=== PATIENT | male | born 1955 | race Caucasian/White ===

== ENCOUNTER 2019-12-30 09:21 | Outpatient (CLI) | payer OTHER, SELFPAY ==
[2019-12-30 10:01] LABS: Basophils Absolute Auto 0.1 K/mm3 (0.0-0.1); Basophils Percent Auto 0.7 % (0.2-1.2); Eosinophils Absolute Auto 0.1 K/mm3 (0-0.3); Eosinophils Percent Auto 1.4 % (0-4.4); Hematocrit 42.2 % (42.0-52.0); Hemoglobin 14.4 g/dL (14.0-18.0); Immature Granulocyte Absolute 0.03 K/mm3 (0.00-0.031); Immature Granulocyte Percent A 0.4 % (0-0.5); Lymphocytes Absolute Auto 1.91 K/mm3 (0.9-3.2); Lymphocytes Percent Auto 27.6 % (18.3-44.2); Mean Corpuscular HGB Conc 34.1 g/dl (32-36); Mean Corpuscular Hemoglobin 30.5 pg (26-34); Mean Corpuscular Volume 89.4 fl (80-100); Monocytes Absolute Auto 0.6 K/mm3 (0.1-0.6); Monocytes Percent Auto 8.5 % (2.6-8.5); Neutrophils Absolute Auto 4.2 K/mm3 (1.3-6.7); Neutrophils Percent Auto 61.4 % (45.5-73.1); Platelet Count Result 161 k/mm3 (150-375); Red Blood Count 4.72 M/mm3 (4.6-6.20); Red Cell Distribution Width 11.9 % (11.5-14.5); White Blood Count 6.9 K/mm3 (4.5-10.0)
[2019-12-30 10:12] LABS: Alanine Aminotransferase 18 U/L (4-50); Albumin Level 4.2 g/dL (3.5-5.1); Alkaline Phosphatase 77 U/L (38-126); Aspartate Amino Transferase 23 U/L (17-59); Bilirubin,Total 0.5 mg/dL (0.2-1.3); Blood Urea Nitrogen 14 mg/dL (9-20); Calcium 8.8 mg/dL (8.4-10.2); Carbon Dioxide 27 mmol/L (22-30); Chloride 102 mmol/L (98-107); Estimated Glomerular Filt Rate > 60; Glucose 107 mg/dL (75-110); Potassium 4.1 mmol/L (3.4-5.0); Sodium 139 mmol/L (137-145)
== END 2019-12-30 09:22 | disposition home or self-care (01) ==
PROVIDERS: PCP Family Medicine; Visit Provider Internal Medicine Medical Oncology
DX: E80.1 Porphyria cutanea tarda (principal)
CPT/HCPCS: 36415; 80053; 82728; 85025

== ENCOUNTER 2020-12-17 14:20 | Emergency (ER) | payer OTHER, SELFPAY ==
--- NOTE | ~2020-12-17 | XR_ITS ---
EXAMINATION: XR ankle RT min 3V DATE: 12/17/2020 14:56 INDICATION: Right ankle pain. TECHNIQUE: 4 views of right ankle were obtained. COMPARISON: None. FINDINGS: Bone alignment is normal. No fracture. There is mild osteoarthritis of talonavicular joint. There is a small osteochondral lesion of medial talar dome. IMPRESSION: 1. Polyarticular osteoarthritis. Reviewed, dictated and finalized at location A. CTOR PERIOPERATIVE
--- NOTE | 2020-12-17 14:42 | ED.LOWEXIN ---
HPI - Extremity Injury (Lower) General Chief Complaint: Extremity Injury, Lower Stated Complaint: Right ankle Pain Time Seen by Provider: 12/17/20 14:42 Source: patient and RN notes reviewed Mode of arrival: ambulatory Limitations: no limitations History of Present Illness HPI Narrative: 65-year-old male presents to [facility] with complaints of right ankle pain for the last 6-8 weeks. No treatment travel pta. Patient has not seen a provider for this issue. Has a HX of an ankle fracture but unsure of the ankle involved. Has not seen anyone for this issues. States that the pain is worse at night. No swelling or discoloration. Related Data Allergies Allergy/AdvReac Type Severity Reaction Status Date / Time No Known Allergies Allergy Verified 07/22/14 13:19 Review of Systems Review of Systems: Narrative: CONSTITUTIONAL: Denies fever, chills, or sweats. CARDIOVASCULAR: Denies chest pain, palpitations, or edema. RESPIRATORY: Denies cough or dyspnea. GASTROINTESTINAL: Denies abdominal pain, nausea, vomiting, or diarrhea. GENITOURINARY: Denies dysuria or hematuria. SKIN: Denies rash or itching. MUSCULOSKELETAL: Denies back pain or myalgia. Reports right ankle pain, generalized. NEUROLOGIC: Denies headache, numbness, or weakness. PSYCHIATRIC: Denies anxiety or depression. All other systems reviewed are negative, except as documented in HPI. [facility] Past Medical History Medical History (Updated 12/18/20 @ 00:00 by Background Daemon) Exposure to COVID-19 virus Social History Social History Smoking status: Never smoker Alcohol intake: current Comments At the time of my signature, I reviewed and agree with the nursing past medical, surgical, social, and family history. There is no relevant family history pertinent to the patient complaint. Exam Narrative: Exam Narrative: GENERAL: This is a well-nourished, well-developed patient, in no apparent distress. HEAD: normocephalic, atraumatic. NECK: Neck supple, non-tender without lymphadenopathy. CARDIOVASCULAR: Regular rate and rhythm without murmurs, gallops, or rubs. RESPIRATORY: Clear to auscultation. Breath sounds equal bilaterally. No wheezes, rales, or rhonchi. GASTROINTESTINAL: Abdomen soft, non-tender, nondistended. SKIN: warm, intact with no suspicious lesions or rash, good texture and turgor. NEURO: awake, alert, and oriented to person, place and time. There were no obvious focal neurologic abnormalities. EXTREMITIES: No clubbing, cyanosis, or edema. No joint tenderness, effusion, or edema noted. No calf tenderness. Negative Homans sign bilaterally. Able to dorsiflex and flex without issue. Achilles intact. No redness, edema or discoloration. Capillary refill under 2 seconds BACK: Nontender without deformity or crepitance. No flank tenderness. Course Vital Signs Vital signs: Vital Signs Temperature 97.0 F L 12/17/20 15:04 Pulse Rate 77 12/17/20 15:04 Respiratory Rate 16 12/17/20 15:04 Blood Pressure 139/77 12/17/20 15:04 Pulse Oximetry 100 12/17/20 15:04 Temperature 97.0 F L 12/17/20 15:04 Pulse Rate 77 12/17/20 15:04 Respiratory Rate 16 12/17/20 15:04 Blood Pressure 139/77 12/17/20 15:04 Pulse Oximetry 100 12/17/20 15:04 Reviewed within defined limits MDM - Extremity Injury (Lower) Imaging Data Radiologist's impression: Impressions Ankle X-Ray 12/17/20 15:00 IMPRESSION: 1. Polyarticular osteoarthritis. Critical Care Time Critical Care Time Critical Care Time: No Discharge Plan Discharge Clinical Impression: Arthritis of ankle, right Patient Disposition: Home, Self-Care Condition: Stable Instructions: Antibiotic Form, Arthritis (ED) Additional Instructions: Use ice or heat to your ankle 3-4 times a day whichever feels better. Take ibuprofen as needed for pain Range of motion exercises are important. Follow-up with your primary care provider if you are not seeing improvement in 1
[2020-12-17 15:04] VITALS: BP 139/77; PULSE 77; RESP 16; TEMP 36.1; O2SAT 100
== END 2020-12-17 15:19 | disposition home or self-care (01) ==
PROVIDERS: Emergency Provider Nurse Practitioner; PCP Family Medicine
DX: M19.071 Primary osteoarthritis, right ankle and foot (principal)
CPT/HCPCS: 73610; 99213; G0463

== ENCOUNTER 2020-12-30 15:21 | Outpatient (CLI) | payer OTHER, SELFPAY ==
[2020-12-30 16:15] LABS: Basophils Absolute Auto 0.1 K/mm3 (0.0-0.1); Basophils Percent Auto 0.6 % (0.2-1.2); Eosinophils Absolute Auto 0.1 K/mm3 (0-0.3); Eosinophils Percent Auto 0.8 % (0-4.4); Hematocrit 41.1 % (42.0-52.0); Hemoglobin 14.2 g/dL (14.0-18.0); Immature Granulocyte Absolute 0.02 K/mm3 (0.00-0.031); Immature Granulocyte Percent A 0.3 % (0-0.5); Lymphocytes Absolute Auto 2.24 K/mm3 (0.9-3.2); Lymphocytes Percent Auto 28.8 % (18.3-44.2); Mean Corpuscular HGB Conc 34.5 g/dl (32-36); Mean Corpuscular Hemoglobin 30.7 pg (26-34); Mean Platelet Volume 11.1 fl (7.4-10.4); Monocytes Absolute Auto 0.5 K/mm3 (0.1-0.6); Monocytes Percent Auto 6.8 % (2.6-8.5); Neutrophils Absolute Auto 4.9 K/mm3 (1.3-6.7); Neutrophils Percent Auto 62.7 % (45.5-73.1); Platelet Count Result 184 k/mm3 (150-375); Red Blood Count 4.62 M/mm3 (4.6-6.20); Red Cell Distribution Width 11.9 % (11.5-14.5); White Blood Count 7.8 K/mm3 (4.5-10.0)
[2020-12-30 16:34] LABS: Alanine Aminotransferase 21 U/L (4-50); Albumin Level 4.2 g/dL (3.5-5.1); Alkaline Phosphatase 65 U/L (38-126); Anion Gap 5 mmol/L (8-16); Aspartate Amino Transferase 27 U/L (17-59); Bilirubin,Total 0.5 mg/dL (0.2-1.3); Blood Urea Nitrogen 19 mg/dL (9-20); Calcium 9.2 mg/dL (8.4-10.2); Carbon Dioxide 29 mmol/L (22-30); Chloride 103 mmol/L (98-107); Estimated Glomerular Filt Rate > 60; Glucose 140 mg/dL (75-110); Potassium 3.9 mmol/L (3.4-5.0); Sodium 137 mmol/L (137-145)
== END 2020-12-30 15:22 | disposition home or self-care (01) ==
LOC: ANHLAB 15:24
PROVIDERS: PCP Family Medicine
DX: E80.20 Unspecified porphyria (principal)
CPT/HCPCS: 36415; 80053; 82728; 85025

== ENCOUNTER → 2021-08-31 08:41 | Outpatient (CLI) | payer BC, SELFPAY ==
[2021-08-31 19:23] LABS: SARS-CoV-2 RNA PCR Negative
== END ==
PROVIDERS: PCP Family Medicine; Visit Provider Family Medicine
DX: R68.89 Other general symptoms and signs (principal); Z20.822 Contact with and (suspected) exposure to COVID-19
CPT/HCPCS: C9803; U0003; U0005

== ENCOUNTER 2021-11-01 09:50 | Observation (INO) | payer BC, SELFPAY ==
[2021-11-01] VITALS (10 sets, daily range): BP systolic 100–127; BP diastolic 71–83; PULSE 64–78; RESP 16–22; TEMP 36.8–37.2; O2SAT 98–100; BMI 28.7
--- NOTE | ~2021-11-01 | XR_ITS ---
EXAMINATION: XR chest 1V portable DATE: 11/01/2021 11:15 INDICATION: COVID presenting with cough, fever, hypoxia and syncope TECHNIQUE: frontal view of the chest was obtained. COMPARISON: None FINDINGS: The lungs are clear with no focal airspace opacities, pulmonary edema, pleural effusion or pneumothor ax. The cardiomediastinal silhouette is normal. Visualized bones and soft tissues are unremarkable. IMPRESSION: 1. No evident acute cardiopulmonary disease. Reviewed, dictated and finalized at location A. ENT SERVICES COUNSELOR
--- NOTE | ~2021-11-01 | CT_ITS ---
EXAMINATION: CT brain wo con DATE: 11/01/2021 11:32 INDICATION: Confusion and dizziness post syncopal episode earlier this morning. COVID positive. TECHNIQUE: Computed tomography (CT) of the head was performed without intravenous contrast. Sagittal and coronal reconstructions were performed. The mA was adjusted according to patient size. Iterative reconstruction technique was employed. The dose-length product was 681.00 mGy-cm. COMPARISON: None FINDINGS: No acute intracranial hemorrhage, acute infarction or abnormal extra axial fluid collection. There is mild scattered white matter hypoattenuation consistent with chronic small vessel ischemic disease. Ventricles are normal and symmetric. No mass/mass effect. Mild mucoperiosteal thickening throughout t he paranasal sinuses. The orbits and mastoid air cells are normal. IMPRESSION: 1. Mild scattered white matter hypoattenuation consistent with chronic small vessel schema disease. N o acute intracranial process. Reviewed, dictated and finalized at location A. DING OPERATOR IMPRESSION: 1. Mild scattered white matter hypoattenuation consistent with chronic small ve ssel schema disease. No acute intracranial process.
--- NOTE | ~2021-11-01 | US_ITS ---
EXAMINATION: US carotid duplex BI EXAM DATE: 11/02/2021 13:06 INDICATION: Syncope. TECHNIQUE: Grayscale, color and pulsed Doppler images of the cervical carotid arteries were obtained . The degree of vessel stenosis is placed in one of the following categories: normal, <50% stenosis, 50-69% stenosis, >=70% stenosis but less than near-occlusion, near-occlusion, or occlusion. Note that percent stenosis relative to normal distal artery lumen diameter is indirectly measured from velocit y measurements as described by Mitchell, et al. Radiology 2003; 229:340-346. There is no prior study fo r comparison. FINDINGS: RIGHT SIDE: Right common carotid artery peak systolic velocity (PSV in cm/s): 79 Right bulb/internal carotid artery peak systolic velocity (PSV in cm/s): 54 Right internal carotid artery end diastolic velocity (EDV in cm/s): 22 Right ICA/CCA peak systolic ratio: 0.7 Right external carotid artery peak systolic velocity (PSV in cm/s): 53 Right vertebral artery antegrade flow: yes There is mild carotid bulb plaque. Velocity and Doppler waveforms in the common and internal carotid arteries is normal. LEFT SIDE: Left common carotid artery peak systolic velocity (PSV in cm/s): 83 Left bulb/internal carotid artery peak systolic velocity (PSV in cm/s): 57 Left internal carotid artery end diastolic velocity (EDV in cm/s): 25 Left ICA/CCA peak systolic ratio: 0.7 Left external carotid artery peak systolic velocity (PSV in cm/s): 67 Left vertebral artery antegrade flow: yes There is mild carotid bulb plaque. Velocity and Doppler waveforms in the common and internal carotid arteries is normal. IMPRESSION: 1. Less than 50 percent stenosis in the right internal carotid artery. 2. Less than 50 percent stenosis in the left internal carotid artery. > Reviewed, dictated and finalized at location B. CIATE PROFESSOR OF FORESTRY
--- NOTE | ~2021-11-01 | CT_ITS ---
EXAMINATION: CTA chest PE protocol EXAM DATE: 11/01/2021 13:26 INDICATION: syncope, hypoxia TECHNIQUE: Spiral CTA of the chest (pulmonary arteries) was performed with 100 cc Omnipaque 350 intr avenous contrast injection. Images were acquired during the pulmonary arterial phase. Coronal maxi mum intensity projection 3D-reconstructions were created by the technologist on dedicated workstation . Axial, coronal and sagittal reformatted images were reviewed. The dose-length product (DLP) for t his examination was 552.15 mGy-cm. The exposure was tailored according to patient size (auto mA exp osure control), and iterative reconstruction (ASIR) was used as additional dose reduction technique. There is no prior study for comparison. FINDINGS: Pulmonary arteries are well opacified and without intraluminal filling defects. No thora cic aortic dissection. The lungs are clear. There are no pleural or pericardial effusions. Trach eobronchial tree is patent. There is no mediastinal, hilar or axillary lymphadenopathy. There is no pneumothorax. There is left ventricular hypertrophy and mild cardiomegaly. There is moderate co ronary arterial calcification, arterial sclerosis. Upper abdomen is unremarkable. There is thoraci c spondylosis without osteoblastic or osteolytic lesions identified. IMPRESSION: 1. Mild cardiomegaly with left ventricular hypertrophy. 2. No pulmonary emboli. Reviewed, dictated and finalized at location B. L TOUCH UP PAINTER
--- NOTE | 2021-11-01 09:59 | ECG_ITS ---
Measurements Intervals [place] Rate: 69 P: 49 IA: 145 QRS: 20 QRSD: 96 T: 48 QT: 404 QTc: 435 Interpretive Statements SINUS RHYTHM NORMAL ECG Electronically Signed On 11-01-2021 10:03:21 SENIOR STRATEGY MANAGER by Rayshawn Dorman D.O.
[2021-11-01 10:50] LABS: Basophils Percent Auto 0.2 % (0.2-1.2); Eosinophils Absolute Auto 0.1 K/mm3 (0-0.3); Eosinophils Percent Auto 0.8 % (0-4.4); Hematocrit 44.1 % (42.0-52.0); Hemoglobin 14.9 g/dL (14.0-18.0); Immature Granulocyte Absolute 0.03 K/mm3 (0.00-0.031); Immature Granulocyte Percent A 0.4 % (0-0.5); Lymphocytes Absolute Auto 1.87 K/mm3 (0.9-3.2); Mean Corpuscular HGB Conc 33.8 g/dl (32-36); Mean Corpuscular Hemoglobin 30.8 pg (26-34); Mean Corpuscular Volume 91.1 fl (80-100); Mean Platelet Volume 10.5 fl (7.4-10.4); Monocytes Absolute Auto 1.3 K/mm3 (0.1-0.6); Monocytes Percent Auto 15.7 % (2.6-8.5); Neutrophils Absolute Auto 5.2 K/mm3 (1.3-6.7); Neutrophils Percent Auto 60.9 % (45.5-73.1); Platelet Count Result 158 k/mm3 (150-375); Red Blood Count 4.84 M/mm3 (4.6-6.20); Red Cell Distribution Width 12.3 % (11.5-14.5); White Blood Count 8.5 K/mm3 (4.5-10.0)
[2021-11-01 10:56] LABS: Alanine Aminotransferase 25 U/L (4-50); Albumin Level 4.5 g/dL (3.5-5.1); Alkaline Phosphatase 61 U/L (38-126); Anion Gap 7 mmol/L (8-16); Aspartate Amino Transferase 26 U/L (17-59); Bilirubin,Total 0.7 mg/dL (0.2-1.3); Blood Urea Nitrogen 14 mg/dL (9-20); Calcium 8.8 mg/dL (8.4-10.2); Carbon Dioxide 29 mmol/L (22-30); Chloride 97 mmol/L (98-107); Estimated CRCL calculation 67 ml/min; Estimated Glomerular Filt Rate > 60; Glucose 129 mg/dL (65-110); Potassium 4.1 mmol/L (3.4-5.0); Sodium 133 mmol/L (137-145)
[2021-11-01 11:28] LABS: Troponin I < 0.012 ng/mL (0.000-0.034)
--- NOTE | 2021-11-01 11:44 | ED.GENADULT ---
HPI - General Adult General Chief complaint: Syncope Stated complaint: syncope Time Seen by Provider: 11/01/21 10:56 Source: patient and RN notes reviewed History of Present Illness HPI narrative: Patient is a 66 y/o male complaining of syncope episode. He states that the got up to go to the bath and passed out briefly and fell. He states that he was probably out only seconds. He has no pain. He has been having a cough for 4 days and he had fever up to 101. He tested positive for COVID with a home test yesterday. He states that his doctor ordered infusion for him for today. He states that he was told by EMS his pulse ox was in 70s initially and he was placed on O2. However, O2 has been weaned off at this time. Related Data Allergies Allergy/AdvReac Type Severity Reaction Status Date / Time No Known Allergies Allergy Verified 11/01/21 16:37 Review of Systems Constitutional: Constitutional: Denies chills, Denies fever(s), Denies headache(s) and Denies weakness Eyes: Eyes: Denies blurry vision ENT: Denies headache(s) and Denies neck pain Cardiovascular: Cardiovascular: Denies chest pain and Denies dyspnea Respiratory: Respiratory: Reports cough and Denies dyspnea Gastrointestinal: Gastrointestinal: Denies abdominal pain, Denies diarrhea, Denies nausea and Denies vomiting Genitourinary: Genitourinary: Denies hematuria and Denies dysuria Musculoskeletal: Musculoskeletal: Denies back pain and Denies neck pain Neurologic: Reports syncope, Denies headache(s) and Denies weakness [facility] Past Medical History Medical History (Updated 11/01/21 @ 16:51 by Mary Olmos MD) Abnormal fasting glucose Glucose 101 with hemoglobin A1c 5.6 on 08/23/2021. BMI 32.0-32.9,adult Chronic anxiety Encounter for prostate cancer screening PSA 0.4 on 02/18/2021. Essential (primary) hypertension Mixed hyperlipidemia Total cholesterol 186, HDL 55, triglycerides 110 and LDL 109 on 08/23/2021. Porphyria Restless legs syndrome Surgical History Surgical History (Updated 11/01/21 @ 14:46 by Ana Michelle PA-C) History of colonoscopy with polypectomy (09/2011) Tubular adenoma and hyperplastic polyp. History of vocal cord polypectomy (10/2011) Benign laryngeal nodule. Family History Family History Father Heart disease Mother Hypertension Social History Social History (Updated 11/01/21 @ 14:47 by Ana Michelle PA-C) Social History: Surrogate decision maker: Azra Rollins, spouse. Code status: Full code. Smoking status: Never smoker Alcohol intake: current Drinks per week: 3 Alcohol use details: Beer. Substance use: never Substance use type: does not use Additional living arrangements comments: The patient lives with his in [place]. Spiritual care concerns: No Exam Const: General: no acute distress and well developed Orientation/consciousness: oriented to person, oriented to place, oriented to time and patient oriented x3 HENMT: Head: normocephalic Ears: external ears normal General nose exam: Normal external nose present Eyes: General: appearance normal, both eyes and all related structures Conjunctivae: conjunctivae normal Neck: Neck: normal visual inspection and full ROM Chest: Chest palpation & inspection: normal inspection of the chest and no tenderness Resp: Effort & Inspection: normal respiratory effort Auscultation: clear to auscultation bilaterally Cardio: Rate: regular rate Rhythm: regular rhythm GI: GI Palp: No abdominal tenderness and Yes Soft to palpation Skin: General skin exam: normal color and turgor normal Neuro: General: oriented to person, oriented to place, oriented to time and patient oriented x3 Cognition (Neuro): normal cognition Extrem: General: normal to inspection, full ROM and no pedal edema Psych: Appearance: grossly normal Mental Status: mental status grossly normal Affec
--- NOTE | 2021-11-01 14:30 | PM.IMHP ---
H&P: HPI History of Present Illness Date/Time: 11/01/21 14:30 Chief Complaint: Syncope. Narrative: This is a very pleasant 66-year-old male with hypertension, restless leg syndrome, and porphyria who presented to the emergency department earlier today via EMS from home for evaluation after syncopal episode. He has not felt well since late last week with cold symptoms to include dry cough, fatigue, body aches, and decreased appetite. Unfortunately he started to feel worse over the weekend and he tested positive for COVID on a home test yesterday. After speaking with his Dr. he was prescribed a Z-Kiran and he was set up for monoclonal antibody infusion today as an outpatient. Not long prior to arrival he got up to use the restroom and he seemed to be having difficulties urinating, not able to start his stream right away, with some mild dysuria. When he finished he turned around to exit the bathroom and he began to feel woozy and had a brief syncopal episode, landing on his side on the floor. His called 911 on their arrival his SpO2 was reportedly in the mid 70s. By the time he got to the emergency department he was able to be weaned off of the oxygen. Chest CTA was negative for pulmonary embolism but did show mild cardiomegaly with left ventricular hypertrophy. Brain CT was unremarkable. I was asked to admit the patient in this setting given the syncopal episode. At the time my evaluation he feels okay and has no specific complaints. He specifically denies vertigo, focal weakness, paresthesias, chest pain, pleuritic pain, palpitations, shortness of breath, and lower extremity edema. He completed the Moderna vaccination series sometime in early summer but has not yet had his booster shot. He has no known sick contacts. Review of Systems Review of Systems: Twelve systems were reviewed. He denies head trauma and injury in the fall today. No history of syncope or cardiac dysrhythmias. Except as documented, all other systems were reviewed and are negative. REPLACED BY [facility] Past Medical History Medical History Abnormal fasting glucose Glucose 101 with hemoglobin A1c 5.6 on 08/23/2021. BMI 32.0-32.9,adult Chronic anxiety Encounter for prostate cancer screening PSA 0.4 on 02/18/2021. Essential (primary) hypertension Mixed hyperlipidemia Total cholesterol 186, HDL 55, triglycerides 110 and LDL 109 on 08/23/2021. Porphyria Restless legs syndrome Surgical History Surgical History (Updated 11/01/21 @ 14:46 by Ana Michelle PA-C) History of colonoscopy with polypectomy (09/2011) Tubular adenoma and hyperplastic polyp. History of vocal cord polypectomy (10/2011) Benign laryngeal nodule. Family History Family History Father Heart disease Mother Hypertension Social History Social History (Updated 11/01/21 @ 23:18 by Ana Michelle PA-C) Social History: Surrogate decision maker: Azrajanina Rollins, spouse. Code status: Full code. Smoking status: Never smoker Alcohol intake: current Drinks per week: 3 Alcohol use details: Beer. Substance use: never Substance use type: does not use Additional living arrangements comments: The patient lives with his in [place]. 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 Meds Home Medications and Allergies Home Medications Medication Instructions Recorded Confirmed Type ibuprofen 600 mg PO TID PRN #30 tablet 12/17/20 11/01/21 Rx alprazolam 0.25 mg tablet 0.25 mg PO TID PRN #60 tablet 02/23/21 11/01/21 Rx ropinirole 0.25 mg tablet 0.25 mg PO QHS #30 tablet 08/25/21 11/01/21 Rx lisinopril 20 mg tablet 10 mg PO DAILY #15 tablet 10/28/21 11/01/21 Rx azithromycin 250 mg tablet See Rx Instructions PO .COMPLEX #6 10/31/21 11/01/21 Rx tablet Allergies Allergy/AdvReac Type Severity Reactio
[2021-11-01 14:41] LABS: Troponin I < 0.012 ng/mL (0.000-0.034)
--- NOTE | 2021-11-01 16:28 | ADMGEN ---
This patient, Manoj Rollins, was admitted to [facility] Surg Room 327-01. Patient/family oriented to hospital policies and general routines including ID bracelet, bed and alarms, visiting hours, pain management, procedures, bathroom and other care routines, personal items, smoking policy, room service/diet, and visiting hours. Information on how to activate the Rapid Response Team has been discussed. Patient/Family are encouraged to report perceived risks to care and to ask questions if they do not understand what they are told or what they should do.
[2021-11-01 16:59] LABS: Troponin I < 0.012 ng/mL (0.000-0.034)
[2021-11-01] MEDS: AZITHROMYCIN 250 MG TABLET PO (21:56)
[2021-11-01] MEDS: FAMOTIDINE 20 MG TABLET PO (21:56)
[2021-11-02] VITALS (8 sets, daily range): BP systolic 115–147; BP diastolic 68–86; PULSE 60–77; RESP 14–18; TEMP 36.6–37.1; O2SAT 96–100
[2021-11-02] MEDS: IBUPROFEN 600 MG TABLET PO ×2 (02:02→21:46)
[2021-11-02] MEDS: ALPRAZolam (*CRX) 0.25 MG TABLET PO (02:04)
[2021-11-02 07:57] LABS: Hematocrit 41.8 % (42.0-52.0); Hemoglobin 14.1 g/dL (14.0-18.0); Mean Corpuscular HGB Conc 33.7 g/dl (32-36); Mean Corpuscular Hemoglobin 30.5 pg (26-34); Mean Corpuscular Volume 90.3 fl (80-100); Mean Platelet Volume 10.8 fl (7.4-10.4); Platelet Count Result 152 k/mm3 (150-375); Red Blood Count 4.63 M/mm3 (4.6-6.20); Red Cell Distribution Width 12.5 % (11.5-14.5); White Blood Count 5.9 K/mm3 (4.5-10.0)
--- NOTE | 2021-11-02 08:00 | ECHO_ITS ---
Patient Info Name: Manoj Rollins Age: 66 years : 1955 Gender: Male Ht: 69 in Wt: 194 lbs BSA: 2.09 m2 HR: 59 bpm BP: 115 / 77 mmHg Heart Rhythm: Sinus Rhythm Technical Quality: Fair Exam Date: 11/02/2021 8:18 AM Exam Location: [facility] Patient Status: Inpatient Admit Date: 11/01/2021 Staff Ordering Physician: Ana Michelle PA-C Field Representative: AARON Attending Provider: Sulaiman Garduno MD Referring Physician: Viviana RUDD; Exam Type: CA echo doppler color flow Study Info Indications R55 - Syncope and collapse I51.7 - Cardiomegaly I10 - Essential (primary) hypertension I42.2 - Other hypertrophic cardiomyopathy Complete two-dimensional, color flow and Doppler transthoracic echocardiogram is performed. Summary 1. Complete two-dimensional, color flow and Doppler transthoracic echocardiogram is performed. 2. Left ventricular chamber dimension is normal. 3. Left ventricular systolic function is normal, estimated at 60-65%. 4. The left ventricular diastolic function is normal. 5. E/e' 7 is not elevated. 6. There is mild aortic valve sclerosis. Left Ventricle E/e' 7 is not elevated. Left ventricular chamber dimension is normal. Left ventricular systolic function is normal, estimated at 60-65%. The left ventricular diastolic function is normal. Right Ventricle Right ventricular chamber dimension is normal. Right ventricular systolic function is normal and with normal TAPSE 3.4 cm.. Left Atria Left atrial chamber dimension is normal. Right Atria Right atrial chamber dimension is normal. Aortic Valve The aortic valve is trileaflet. There is mild aortic valve sclerosis. There is no aortic valve stenosis. There is no aortic valve regurgitation. Pulmonic Valve There is no pulmonic regurgitation. Mitral Valve There is no mitral valve stenosis. There is no mitral valve regurgitation. Tricuspid Valve There is no tricuspid valve regurgitation. Pericardium/Pleural There is no pericardial effusion. Inferior Vena Cava Normal inferior vena cava with >50% collapse upon inspiration consistent with normal right atrial pressure, 5 mmHg. Aorta The aortic root size at the sinus of Valsalva is normal. Left Ventricular Outflow Tract Name Value Normal LVOT 2D LVOT Diameter 2.0 cm LVOT Doppler LVOT Peak Gradient 5 mmHg LVOT Mean Gradient 3 mmHg LVOT VTI 24 cm LVOT VTI/AV VTI Ratio 0.7 LVOT Stroke Volume 78 ml LVOT CO 4.8 l/min LVOT CI 2.3 l/min/m2 Pulmonic Valve Name Value Normal PV Doppler PV Peak Gradient 4 mmHg Mitral Valve
[2021-11-02] MEDS: ZINC SULFATE 220 MG CAPSULE PO (08:24)
[2021-11-02] MEDS: AZITHROMYCIN 250 MG TABLET PO (08:24)
[2021-11-02] MEDS: ASCORBIC ACID 500 MG TABLET PO (08:24)
[2021-11-02] MEDS: lisinopriL 10 MG TABLET PO (08:25)
[2021-11-02] MEDS: FAMOTIDINE 20 MG TABLET PO ×2 (08:25→21:44)
[2021-11-02] MEDS: CHOLECALCIFEROL 400 UNITS TABLET (VIT D) PO (08:25)
[2021-11-02] MEDS: ENOXAPARIN 40 MG/0.4 ML SYRINGE SUB-Q (08:26)
[2021-11-02 09:00] LABS: Alanine Aminotransferase 23 U/L (4-50); Albumin Level 4.1 g/dL (3.5-5.1); Alkaline Phosphatase 52 U/L (38-126); Anion Gap 13 mmol/L (8-16); Aspartate Amino Transferase 27 U/L (17-59); Bilirubin,Total 0.7 mg/dL (0.2-1.3); Blood Urea Nitrogen 18 mg/dL (9-20); CRP 1.3 mg/dL (<1.0); Calcium 8.8 mg/dL (8.4-10.2); Carbon Dioxide 25 mmol/L (22-30); Chloride 97 mmol/L (98-107); Estimated CRCL calculation 55 ml/min; Estimated Glomerular Filt Rate > 60; Glucose 110 mg/dL (65-110); Magnesium 2.3 mg/dL (1.6-2.3); Sodium 135 mmol/L (137-145)
--- NOTE | 2021-11-02 10:40 | PM.IMPN ---
Progress Note: A&P Assessment and Plan (1) Syncope: Code(s): R55 - Syncope and collapse Status: Acute Assessment and Plan: probabale micturition syncope however he has had a decrease in appetite thus he may be a bit dehydrated. give iv fluid . continue telemetry to rule out cardiac dysrhythmia, which seems less likely. Given mild cardiomegaly and left ventricular hypertrophy on chest CTA pending echocardiogram.and carotid doppler pending neurology eval (2) Essential (primary) hypertension: Code(s): I10 - Essential (primary) hypertension Status: Acute Assessment and Plan: Blood pressures were reviewed and they are stable. Continue lisinopril with parameters and monitor. (3) COVID-19: Code(s): U07.1 - COVID-19 Status: Acute Assessment and Plan: Patient tested positive for this same on a home test yesterday. He was supposed to receive monoclonal antibody infusions as an outpatient. arranged for monoclonal antibody to be given tomorrow at 3:00 p.m. after discharge as most likely patient will be discharged in a.m.. (4) Chronic anxiety: Code(s): F41.9 - Anxiety disorder, unspecified Status: Acute Assessment and Plan: No acute issues. Continue alprazolam as needed. (5) Restless legs syndrome: Code(s): G25.81 - Restless legs syndrome Status: Acute Assessment and Plan: Continue ropinirole. Subjective Date/time seen: 11/02/21 10:41 Interval history: Patient seen and examined Patient presented to the hospital with episode of syncope when he was urinating associated with hypoxia CT scan of the chest was negative echo pending carotid Doppler pending patient was recently diagnosed with COVID-19 patient is vaccinated was planned to get monoclonal antibodies I discussed with the rn case manager hospice patient to get monoclonal antibodies as outpatient at 3:00 p.m. after discharge Patient denies fever headache chest pain shortness of breath I am seeing the patient for syncope Exam Narrative: Alert Chest no wheeze crackles Abdomen nontender nondistended CVS S1 + S2 Lower extremity edema Objective Data Vital Signs Vital Signs: Vital Signs - 24 hr 11/01/21 11:19 11/01/21 13:58 11/01/21 14:22 Temperature Pulse Rate 76 70 64 Respiratory Rate 22 H 18 18 Blood Pressure 100/77 116/79 126/71 Pulse Oximetry 100 100 99 11/01/21 15:58 11/01/21 16:26 11/01/21 20:00 Temperature 98.3 F 99.0 F Pulse Rate 75 78 78 Respiratory Rate 22 H 16 16 Blood Pressure 127/83 116/82 123/81 Pulse Oximetry 100 100 98 11/02/21 00:00 11/02/21 04:00 11/02/21 08:00 Temperature 98.7 F 97.8 F 97.9 F Pulse Rate 73 68 65 Respiratory Rate 16 18 16 Blood Pressure 126/78 115/77 125/78 Pulse Oximetry 98 98 98 Intake/Output Intake/Output: Intake & Output 10/30/21 10/31/21 11/01/21 11/02/21 23:59 23:59 23:59 23:59 Intake Total 450 650 Output Total 0 800 Balance 450 -150 Meds/Results Medications: Active Medications Generic Name Dose Route Start Last Admin Trade Name Freq PRN Reason Stop Dose Admin Alprazolam 0.25 mg 11/01/21 23:22 11/02/21 02:04 Alprazolam (*Crx) 0.25 Mg Tablet PO 0.25 mg TID PRN Administration anxiety Ascorbic Acid 500 mg 11/02/21 09:00 11/02/21 08:24 Ascorbic Acid 500 Mg Tablet PO 500 mg DAILY RUPERT Administration Azithromycin 250 mg 11/01/21 21:15 11/02/21 08:24 Azithromycin 250 Mg Tablet PO 11/03/21 09:01 250 mg DAILY RUPERT Administration Enoxaparin Sodium 40 mg 11/02/21 09:00 11/02/21 08:26 Enoxaparin 40 Mg/0.4 Ml Syringe SUB-Q 40 mg DAILY RUPERT Administration Famotidine 20 mg 11/01/21 21:00 11/02/21 08:25 Famotidine 20 Mg Tablet PO 20 mg Q12HR RUPERT Administration Ibuprofen 600 mg 11/01/21 23:22 11/02/21 02:02 Ibuprofen 600 Mg Tablet PO 600 mg TID PRN Administration Pain Rated 1-3 Lisinopril 10 mg 11/02/21 09:00
[2021-11-02 12:24] LABS: Lactate Dehydrogenase 415 U/L (313-618)
[2021-11-02] MEDS: rOPINIRole HCL 0.25 MG TABLET PO (21:44)
[2021-11-03] VITALS (8 sets, daily range): BP systolic 116–136; BP diastolic 65–91; PULSE 59–88; RESP 14–16; TEMP 36.3–36.7; O2SAT 97–100
[2021-11-03 02:23] LABS: Add Urine Microscopic? YES; Appearance Urine Clear (Clear); Bilirubin Urine Negative (Negative); Blood Urine Negative (Negative); Color Urine Yellow (Yellow); Glucose Urine UA Negative (Negative); Ketones Urine Negative (Negative); Leukocyte Esterase Ur Negative LEU/UL (Negative); Mucus Urine Rare /lpf; Nitrate Urine Negative (Negative); Protein Urine Negative (Negative); Specific Grav Ur 1.014 (1.001-1.035); Squamous Epithelial Cell Urine Rare /hpf (Few); Urobilinogen Urine Negative mg/dL (<2.0); WBC Urine 0-3 /hpf
[2021-11-03 07:10] LABS: Basophils Percent Auto 0.4 % (0.2-1.2); Eosinophils Absolute Auto 0.2 K/mm3 (0-0.3); Eosinophils Percent Auto 3.1 % (0-4.4); Hematocrit 40.7 % (42.0-52.0); Hemoglobin 14.2 g/dL (14.0-18.0); Immature Granulocyte Absolute 0.01 K/mm3 (0.00-0.031); Immature Granulocyte Percent A 0.2 % (0-0.5); Lymphocytes Absolute Auto 1.84 K/mm3 (0.9-3.2); Lymphocytes Percent Auto 38.3 % (18.3-44.2); Mean Corpuscular HGB Conc 34.9 g/dl (32-36); Mean Corpuscular Hemoglobin 30.5 pg (26-34); Mean Corpuscular Volume 87.5 fl (80-100); Mean Platelet Volume 10.4 fl (7.4-10.4); Monocytes Absolute Auto 0.6 K/mm3 (0.1-0.6); Monocytes Percent Auto 12.5 % (2.6-8.5); Neutrophils Absolute Auto 2.2 K/mm3 (1.3-6.7); Neutrophils Percent Auto 45.5 % (45.5-73.1); Platelet Count Result 156 k/mm3 (150-375); Red Blood Count 4.65 M/mm3 (4.6-6.20); Red Cell Distribution Width 12.1 % (11.5-14.5); White Blood Count 4.8 K/mm3 (4.5-10.0)
[2021-11-03 07:30] LABS: Alanine Aminotransferase 22 U/L (4-50); Albumin Level 3.9 g/dL (3.5-5.1); Alkaline Phosphatase 60 U/L (38-126); Anion Gap 10 mmol/L (8-16); Aspartate Amino Transferase 25 U/L (17-59); Bilirubin,Total 0.6 mg/dL (0.2-1.3); Blood Urea Nitrogen 18 mg/dL (9-20); Calcium 8.5 mg/dL (8.4-10.2); Carbon Dioxide 26 mmol/L (22-30); Chloride 99 mmol/L (98-107); Estimated CRCL calculation 60 ml/min; Estimated Glomerular Filt Rate > 60; Glucose 108 mg/dL (65-110); Potassium 3.8 mmol/L (3.4-5.0); Sodium 135 mmol/L (137-145)
[2021-11-03] MEDS: AZITHROMYCIN 250 MG TABLET PO (09:46)
[2021-11-03] MEDS: FAMOTIDINE 20 MG TABLET PO (09:46)
[2021-11-03] MEDS: ZINC SULFATE 220 MG CAPSULE PO (09:46)
[2021-11-03] MEDS: ASCORBIC ACID 500 MG TABLET PO (09:46)
[2021-11-03] MEDS: ENOXAPARIN 40 MG/0.4 ML SYRINGE SUB-Q (09:46)
[2021-11-03] MEDS: lisinopriL 10 MG TABLET PO (09:46)
[2021-11-03] MEDS: CHOLECALCIFEROL 400 UNITS TABLET (VIT D) PO (09:46)
[2021-11-03] MEDS: ALPRAZolam (*CRX) 0.25 MG TABLET PO (09:46)
--- NOTE | 2021-11-03 13:48 | PM.DS ---
DS: Admitting Diagnosis Discharge Date 11/03/2021 Admitting Diagnosis SYNCOPE DS: Discharge Diagnosis Discharge Diagnosis (1) Syncope: Code(s): R55 - Syncope and collapse Status: Acute Assessment and Plan: Likely secondary to dehydration pt given fluids. Given mild cardiomegaly and left ventricular hypertrophy on chest CTA. PT had echo and us of carotids also. US OF CAROTIDS 1. Less than 50 percent stenosis in the right internal carotid artery. 2. Less than 50 percent stenosis in the left internal carotid artery. (2) Essential (primary) hypertension: Code(s): I10 - Essential (primary) hypertension Status: Acute Assessment and Plan: Blood pressures were reviewed and they are stable. Continue lisinopril (3) COVID-19: Code(s): U07.1 - COVID-19 Status: Acute Assessment and Plan: Patient tested positive for this same on a home test yesterday. He was supposed to receive monoclonal antibody infusions as an outpatient. arranged for monoclonal antibody to be given tomorrow at 3:00 p.m. after discharge as most likely patient will be discharged in a.m.. (4) Chronic anxiety: Code(s): F41.9 - Anxiety disorder, unspecified Status: Acute Assessment and Plan: No acute issues. Continue alprazolam as needed. (5) Restless legs syndrome: Code(s): G25.81 - Restless legs syndrome Status: Acute Assessment and Plan: Continue ropinirole. DS: Summary Hospital Course Hospital Course: Patient presented to the hospital with episode of syncope when he was urinating associated with hypoxia CT scan of the chest was negative echo pending carotid Doppler pending patient was recently diagnosed with COVID-19 patient is vaccinated was planned to get monoclonal antibodies I discussed with the case coordinator patient to get monoclonal antibodies as outpatient at 3:00 p.m. after discharge Time Spent with Patient Time attestation: Total time spent providing and/or coordinating discharge services:40 minutes on day of dischrage Exam Narrative: Alert Chest no wheeze crackles Abdomen nontender nondistended CVS S1 + S2 Lower extremity edema DS: Data Data Completed and Pending Labs on day of discharge: Labs from last 24 hours 11/03/21 11/03/21 11/03/21 06:38 06:38 01:34 WBC 4.8 RBC 4.65 Hgb 14.2 Hct 40.7 L MCV 87.5 MCH 30.5 MCHC 34.9 RDW 12.1 Plt Count 156 MPV 10.4 Immature Gran % (Auto) 0.2 Neut % (Auto) 45.5 Lymph % (Auto) 38.3 [place] % (Auto) 12.5 H Eos % (Auto) 3.1 Baso % (Auto) 0.4 Lymph # (Auto) 1.84 [place] # (Auto) 0.6 Eos # (Auto) 0.2 Baso # (Auto) 0.0 Abs Immat Gran (auto) 0.01 Absolute Neuts (auto) 2.2 Absolute Nucleated RBC 0.0 Nucleated RBC % 0.0 Sodium 135 L Potassium 3.8 Chloride 99 Carbon Dioxide 26 Anion Gap 10 BUN 18 Creatinine 1.10 Estim Creat Clear Calc 60 Estimated GFR > 60 Glucose 108 Calcium 8.5 Total Bilirubin 0.6 AST 25 ALT 22 Alkaline Phosphatase 60 Total Protein 7.0 Albumin 3.9 Urine Color Yellow Urine Appearance Clear Urine pH 5.0 Ur Specific [place] 1.014 Urine Protein Negative Urine Glucose (UA) Negative Urine Ketones Negative Ur Blood (Man) Negative Urine Nitrate Negative Urine Bilirubin Negative Urine Urobilinogen Negative Leukocyte Esterase Rfl Negative Urine WBC 0-3 Ur Squamous Epith Cells Rare Urine Mucus Rare Discharge Plan Discharge Attending physician on discharge: Taylor Jeter Consulting providers: Que Garrido M.A. ; Checo Hernadez ; Yared Hurley ; Ana Michelle ; Rayshawn Dorman Discharging Clinician: Taylor Jeter Anticipated Discharge Date/Time: 11/03/21 13:44 Patient Disposition: Home, Self-Care Activity: as tolerated Diet: heart healthy Discharge Inst
== END 2021-11-03 14:45 | disposition home or self-care (01) ==
LOC: ANHED 10:56 → ANH3MEDSUR 15:59
PROVIDERS: Internal Medicine; Physician Assistant; Admitting Provider Family Medicine; Emergency Provider Emergency Medicine; PCP Family Medicine; Visit Provider Family Medicine
DX: U07.1 COVID-19 (principal); R55 Syncope and collapse; R30.0 Dysuria; I10 Essential (primary) hypertension; I65.23 Occlusion and stenosis of bilateral carotid arteries; E78.2 Mixed hyperlipidemia; E80.20 Unspecified porphyria; G25.81 Restless legs syndrome; F41.9 Anxiety disorder, unspecified
CPT/HCPCS: 36415; 70450; 71045; 71275; 80053; 81001; 82728; 83615; 83735; 84484; 85025; 85027; 86140; 93005; 93306; 93880; 96372; 99285; A9270; G0378; J1650; M0243; Q0244; Q9967

== ENCOUNTER 2021-11-03 15:30 | Outpatient (RCR) | payer BC, SELFPAY ==
[2021-11-03] MEDS: ACETAMINOPHEN 325 MG TABLET 650 MG PO (15:20)
[2021-11-03] MEDS: diphenhydrAMINE HCl CAP 25 MG CAPSULE PO (15:21)
[2021-11-03] MEDS: FAMOTIDINE 20 MG TABLET PO (15:21)
[2021-11-03 15:22] VITALS: BP 130/72; PULSE 68; RESP 20; TEMP 36.2; O2SAT 98
[2021-11-03 16:46] VITALS: BP 118/70
--- NOTE | 2021-11-04 15:19 | PC.NURSE ---
Called Mr Rollins and had to leave a message for him to call us back.
== END 2021-11-03 17:30 | disposition home or self-care (01) ==
LOC: AMCINF 15:30
PROVIDERS: PCP Family Medicine; Referring Provider Family Medicine; Visit Provider Internal Medicine Hematology & Oncology
DX: U07.1 COVID-19 (principal); I10 Essential (primary) hypertension
CPT/HCPCS: A9270; M0243; Q0244

== ENCOUNTER 2022-06-20 00:04 | Day surgery (SDC) | payer BC, SELFPAY ==
[2022-06-05 15:51] VITALS: BMI 30.9
[2022-06-20 09:49] VITALS: BP 124/69; PULSE 67; RESP 16; TEMP 36.4; O2SAT 99; BMI 33.7
[2022-06-20] MEDS: LACTATED RINGERS 1,000 ML 150 ML IV CONT (09:57)
--- NOTE | 2022-06-20 10:26 | PM.IMHP ---
H&P: HPI History of Present Illness Date/Time: 06/20/22 10:26 Chief Complaint: History of colon polyps Narrative: this is a 66-year-old white male patient presents for screening colonoscopy. Patient's current weight appetite and bowel movements are normal. Patient denies abdominal pain. He has had no bleeding. Family history noncontributory. Patient's previous colonoscopy 2013 revealed adenomatous colon polyps. Patient presents today for screening colonoscopy. Review of Systems Review of Systems: Review of systems noncontributory. [facility] Past Medical History Medical History (Updated 02/24/22 @ 15:20 by Willie Zimmer MD) Abnormal fasting glucose Glucose 101 with hemoglobin A1c 5.6 on 08/23/2021. BMI 32.0-32.9,adult BMI 33.0-33.9,adult Chronic anxiety Encounter for prostate cancer screening PSA 0.4 on 02/18/2021. Essential (primary) hypertension Mixed hyperlipidemia Total cholesterol 186, HDL 55, triglycerides 110 and LDL 109 on 08/23/2021. Obesity (BMI 30.0-34.9) Polyp of colon colonoscopy on 07/22/2014 with 2 polyps with recheck in 5 years, Dr. Garcia Porphyria goal of ferritin less than 50 with phlebotomy by oncologist Restless legs syndrome Surgical History Surgical History (Updated 02/23/22 @ 11:45 by Willie Zimmer MD) History of colonoscopy with polypectomy (09/2011) Tubular adenoma and hyperplastic polyp. History of vocal cord polypectomy (10/2011) Benign laryngeal nodule. Family History Family History Father Heart disease Mother Hypertension Social History Social History Social History: Surrogate decision maker: Azra Anayaray, spouse. Code status: Full code. Smoking status: Never smoker Alcohol intake: current Drinks per week: 6 Alcohol use details: Beer. Substance use: never Substance use type: does not use Living arrangements: with family Additional living arrangements comments: The patient lives with his in [place]. 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 Spiritual care concerns: No Meds Home Medications and Allergies Home Medications Medication Instructions Recorded Confirmed Type ibuprofen 600 mg tablet 600 mg PO TID PRN pain #30 tabs 12/17/20 06/20/22 Rx alprazolam 0.25 mg tablet 0.25 mg PO TID PRN anxiety #60 tabs 02/23/21 06/20/22 Rx ropinirole 0.25 mg tablet 0.25 mg PO QHS #30 tabs 08/25/21 06/20/22 Rx lisinopril 20 mg tablet 20 mg PO DAILY #30 tabs 02/23/22 06/20/22 Rx Allergies Allergy/AdvReac Type Severity Reaction Status Date / Time No Known Allergies Allergy Verified 06/20/22 09:48 Vital Signs Vital Signs - 24 hr 06/20/22 09:49 Temperature 97.5 F L Pulse Rate 67 Respiratory Rate 16 Blood Pressure 124/69 Pulse Oximetry 99 Oxygen Delivery Room Air Exam Narrative: Physical exam reveals patient be alert. Vital signs stable. HEENT exam is unremarkable. Patient is anicteric. Lungs are clear to auscultation and percussion. Heart is without murmur or extra sounds. Abdominal exam bowel sounds are present soft nontender with no organomegaly. Digital external rectal exam is normal. Assessment and Plan Assessment and plan (1) Polyp of colon: Code(s): K63.5 - Polyp of colon Status: Acute Assessment and Plan: Patient has a prior history of colon polyps 2014. Plan is for surveillance colonoscopy now and consider this at intervals in the future. Typically at 5 year intervals.
--- NOTE | 2022-06-20 10:39 | WPDANESEPPF ---
Anes - Initial Pre Proc Eval Procedure: Operation Date: 06/20/22 11:00 Proposed Procedures p Screening Colonoscopy - Rashid Hughes MD Date/Time: 06/20/22 10:39 Surgeon: Rashid Hughes MD Pre Op Diagnosis: neoplasm screening, hx of colon polyps Patient Data Age: 66 Gender: M Height: 1.75 m Weight: 103.7 kg Last Vital Signs Temp 97.5 F L 06/20/22 09:49 Pulse 67 06/20/22 09:49 Resp 16 06/20/22 09:49 BP 124/69 06/20/22 09:49 Pulse Ox 99 06/20/22 09:49 O2 Del Method Room Air 06/20/22 09:49 Allergies Allergy/AdvReac Type Severity Reaction Status Date / Time No Known Allergies Allergy Verified 06/20/22 09:48 Home Medications Medication Instructions Recorded Confirmed Type ibuprofen 600 mg tablet 600 mg PO TID PRN pain #30 tabs 12/17/20 06/20/22 Rx alprazolam 0.25 mg tablet 0.25 mg PO TID PRN anxiety #60 tabs 02/23/21 06/20/22 Rx ropinirole 0.25 mg tablet 0.25 mg PO QHS #30 tabs 08/25/21 06/20/22 Rx lisinopril 20 mg tablet 20 mg PO DAILY #30 tabs 02/23/22 06/20/22 Rx Patient hx anesthesia problems: none Family hx anesthesia problems: none Results Review: All pre-operative results and documents have been reviewed as part of the pre-operative evaluation. [facility] Past Medical History Medical History (Updated 02/24/22 @ 15:20 by Willie Zimmer MD) Abnormal fasting glucose Glucose 101 with hemoglobin A1c 5.6 on 08/23/2021. BMI 32.0-32.9,adult BMI 33.0-33.9,adult Chronic anxiety Encounter for prostate cancer screening PSA 0.4 on 02/18/2021. Essential (primary) hypertension Mixed hyperlipidemia Total cholesterol 186, HDL 55, triglycerides 110 and LDL 109 on 08/23/2021. Obesity (BMI 30.0-34.9) Polyp of colon colonoscopy on 07/22/2014 with 2 polyps with recheck in 5 years, Dr. Garcia Porphyria goal of ferritin less than 50 with phlebotomy by oncologist Restless legs syndrome Surgical History Surgical History (Updated 02/23/22 @ 11:45 by Willie Zimmer MD) History of colonoscopy with polypectomy (09/2011) Tubular adenoma and hyperplastic polyp. History of vocal cord polypectomy (10/2011) Benign laryngeal nodule. Family History Family History Father Heart disease Mother Hypertension Social History Social History Social History: Surrogate decision maker: Azra Rollins, spouse. Code status: Full code. Smoking status: Never smoker Alcohol intake: current Drinks per week: 6 Alcohol use details: Beer. Substance use: never Substance use type: does not use Living arrangements: with family Additional living arrangements comments: The patient lives with his in [place]. 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 Spiritual care concerns: No Anes - Eval Final PreProcedure Day of Procedure 06/20/22 10:39 Patient weight: obese Heart: regular rate and rhythm Lungs: clear to auscultation Airway: Mallampati scale class III Neurological: alert and oriented Last oral intake: >/= 8 hours ASA classification: III Emergent: no Anesthetic plan: proceed Results Review: All pre-operative results and documents have been reviewed as part of the pre-operative evaluation. Informed Consent: The patient's anesthetic plan and its attendant risks and benefits were discussed with the patient/family/POA. Questions were solicited and answers provided to the satisfaction of the patient/family/POA.
[2022-06-20 11:26] VITALS: BP 107/70; PULSE 63; RESP 16; O2SAT 99
[2022-06-20 11:36] VITALS: BP 121/87; PULSE 62; RESP 16; O2SAT 99
[2022-06-20 11:46] VITALS: BP 126/83; PULSE 53; RESP 21; O2SAT 99
== END 2022-06-20 11:57 | disposition home or self-care (01) ==
PROVIDERS: PCP Family Medicine; Visit Provider Internal Medicine Gastroenterology
PROC: 0DJD8ZZ Inspection of Lower Intestinal Tract, Via Natural or Artificial Opening Endoscopic (ICD-10-PCS; CPT 45378; principal; 2022-06-20 11:00)
DX: Z12.11 Encounter for screening for malignant neoplasm of colon (principal); K64.8 Other hemorrhoids; Z86.010 Personal history of colon polyps; I10 Essential (primary) hypertension; E78.2 Mixed hyperlipidemia; F41.9 Anxiety disorder, unspecified; E66.9 Obesity, unspecified; Z68.33 Body mass index [BMI] 33.0-33.9, adult
CPT/HCPCS: 45378; J2704; J7120

== ENCOUNTER 2024-04-12 09:17 | Outpatient (CLI) | payer MEDICARE, SELFPAY ==
[2024-04-12 10:01] LABS: Alanine Aminotransferase 20 U/L (6-50); Albumin Level 4.3 g/dL (3.5-5.1); Alkaline Phosphatase 57 U/L (38-126); Anion Gap 5 mmol/L (4-12); Aspartate Amino Transferase 23 U/L (17-59); Bilirubin,Total 0.8 mg/dL (0.2-1.3); Blood Urea Nitrogen 19 mg/dL (9-20); Carbon Dioxide 29 mmol/L (22-30); Chloride 104 mmol/L (98-107); Cholesterol 188 mg/dL (0-200); Estimated Glomerular Filt Rate > 60; Glucose 114 mg/dL (65-110); HDL Direct 56 mg/dL; Potassium 4.4 mmol/L (3.4-5.0); Sodium 138 mmol/L (137-145); Triglycerides 78 mg/dL (<150)
[2024-04-12 10:02] LABS: Hemoglobin A1C 5.3 % (<5.7)
[2024-04-12 10:06] LABS: Appearance Urine Clear (Clear); Bacteria Urine None Seen /hpf; Bilirubin Urine Negative (Negative); Blood Urine Negative (Negative); Color Urine Yellow (Yellow); Glucose Urine UA Negative (Negative); Ketones Urine Negative (Negative); Leukocyte Esterase Ur 1+ LEU/UL (Negative); Need Manual Microscopic Reviewed; Nitrate Urine Negative (Negative); Non Pathogenic Casts 0-2; Protein Urine Negative (Negative); RBC Urine 0-2 /hpf (0-2); Specific Grav Ur 1.016 (1.001-1.035); Squamous Epithelial Cell Urine None Seen /hpf (Few); Urobilinogen Urine 0.2 mg/dL (<2.0); WBC Urine 0-5 /hpf (0-3)
[2024-04-12 10:12] LABS: LDL Cholesterol Direct 111 mg/dL
[2024-04-12 10:17] LABS: Add Urine Microscopic? YES
== END 2024-04-12 09:18 | disposition home or self-care (01) ==
LOC: ANHLAB 09:24
PROVIDERS: PCP Family Medicine; Visit Provider Nurse Practitioner Family
DX: Z12.5 Encounter for screening for malignant neoplasm of prostate (principal); I10 Essential (primary) hypertension; R73.01 Impaired fasting glucose; E78.2 Mixed hyperlipidemia
CPT/HCPCS: 36415; 80053; 80061; 81001; 83036; 84153; 84443; G0103

== ENCOUNTER 2024-05-26 11:30 | Outpatient (CLI) | payer MEDICARE, SELFPAY ==
[2024-05-26 12:31] LABS: Prostate Specific Antigen 0.5 ng/mL (< OR = 4.0)
== END 2024-05-26 11:31 | disposition home or self-care (01) ==
LOC: ANHLAB 11:31
PROVIDERS: PCP Family Medicine; Visit Provider Family Medicine
DX: Z12.5 Encounter for screening for malignant neoplasm of prostate (principal)
CPT/HCPCS: 36415; 84153; G0103

== ENCOUNTER 2024-06-10 15:32 | Outpatient (CLI) | payer MEDICARE, SELFPAY ==
--- NOTE | 2024-06-10 15:37 | ECHO_ITS ---
Patient Info Name: Manoj Rollins Age: 68 years : 1955 Gender: Male Ht: 69 in Wt: 224 lbs BSA: 2.26 m2 HR: 76 bpm BP: 141 / 87 mmHg Heart Rhythm: Sinus Rhythm Technical Quality: Good Exam Date: 06/10/2024 3:55 PM Exam Location: Echo Lab Patient Status: Outpatient Admit Date: 06/10/2024 Staff Ordering Physician: Rayshawn Dorman DO [employer] Assistant: Audie Mariee RDCS Attending Provider: Rayshawn Dorman DO Referring Physician: Dandy SANFORD; Exam Type: CA echo doppler color flow Study Info Indications - cardiac murmur unsp Complete two-dimensional, color flow and Doppler transthoracic echocardiogram is performed. Summary 1. Complete two-dimensional, color flow and Doppler transthoracic echocardiogram is performed. 2. Left ventricular chamber dimension is normal. 3. Left ventricular systolic function is normal, estimated at 60-65%. 4. The left ventricular diastolic function is grade I diastolic dysfunction. 5. E/e' 7 is not elevated. 6. There is trace mitral valve regurgitation. 7. No pulmonary hypertension, estimated pulmonary arterial systolic pressure is 17 mmHg. Left Ventricle E/e' 7 is not elevated. Left ventricular chamber dimension is normal. Left ventricular systolic function is normal, estimated at 60-65%. The left ventricular diastolic function is grade I diastolic dysfunction. Right Ventricle Right ventricular systolic function is normal and with normal TAPSE 3.0 cm. Right ventricular chamber dimension is normal. Left Atria Left atrial chamber dimension is normal. Right Atria Right atrial chamber dimension is normal. Aortic Valve The aortic valve is trileaflet. There is no aortic valve stenosis. There is no aortic valve regurgitation. Pulmonic Valve There is no pulmonic regurgitation. Mitral Valve There is no mitral valve stenosis. There is trace mitral valve regurgitation. Tricuspid Valve There is no tricuspid valve regurgitation. No pulmonary hypertension, estimated pulmonary arterial systolic pressure is 17 mmHg. Pericardium/Pleural There is no pericardial effusion. Inferior Vena Cava Normal inferior vena cava with >50% collapse upon inspiration consistent with normal right atrial pressure, 5 mmHg. Aorta The aortic root size at the sinus of Valsalva is normal. Left Ventricular Outflow Tract Name Value Normal LVOT 2D LVOT Diameter 2.0 cm LVOT Doppler LVOT Peak Gradient 11 mmHg LVOT Mean Gradient 7 mmHg LVOT VTI 32 cm LVOT VTI/AV VTI Ratio 0.7 LVOT Stroke Volume 102 ml LVOT CO 7.9 l/min LVOT CI 3.5 l/min/m2 Pulmonic Valve Name Value Normal PV Doppler PV Peak Gradient 4 mmHg Mitral Valve Name
== END 2024-06-10 15:33 | disposition home or self-care (01) ==
LOC: ANHCARD 15:34
PROVIDERS: PCP Family Medicine; Visit Provider Internal Medicine Cardiovascular Disease
DX: R01.1 Cardiac murmur, unspecified (principal)
CPT/HCPCS: 93306

== ENCOUNTER 2024-08-21 11:24 | Emergency (ER) | payer MEDICARE, SELFPAY ==
--- NOTE | ~2024-08-21 | CT_ITS ---
CT diagnostic chest wo con Ordering provider: Philomena Hawkins MD History: 68 years Male with . cough, SOB, eval for PNA . Comparison: November 01, 2021 Technique: CT chest without IV contrast. Radiation reduction technique utilized. The dose-length product was 487.99 mGy-cm. FINDINGS: VISUALIZED THORACIC INLET: Normal. MEDIASTINUM: Aorta/coronary arteries: Mild atheromatous disease. Heart/other: The heart is not enlarged. Lymph nodes: No mediastinal or hilar adenopathy. LUNGS: No pulmonary nodules or masses. No infiltrates or effusions. No pneumothorax. VISUALIZED UPPER ABDOMEN: the visualized upper abdomen is normal. MUSCULOSKELETAL: Soft tissues: The superficial soft tissues are normal. Bones: Age appropriate degenerative changes of the spine. IMPRESSION: No acute cardiopulmonary pathology. No evidence of pneumonia seen. Reviewed, dictated and finalized at location A.
[2024-08-21 11:30] VITALS: BP 161/78; PULSE 978; RESP 20; TEMP 36.4; O2SAT 97
--- NOTE | 2024-08-21 12:38 | ECG_ITS ---
Test Date: 2024-08-21 12:49:09 Measurements Intervals [place] Rate: 85 P: 54 NM: 130 QRS: 29 QRSD: 93 T: 46 QT: 364 QTc: 434 Interpretive Statements SINUS RHYTHM No previous ECG available for comparison Electronically Signed On 08-21-2024 13:35:44 CDT by Tip Raines M.D.
--- NOTE | 2024-08-21 12:39 | ED.URI ---
HPI - URI/Sore Throat General Chief Complaint: Upper Respiratory Infection Stated Complaint: flu like symptoms, sob Time Seen by Provider: 08/21/24 12:04 History of Present Illness HPI Narrative: 68-year-old male with a history of hypertension presenting with cough and shortness of breath. States that he had a viral URI a couple of weeks ago. States that he started to feel better but unfortunately he continues to have a severe cough and he feels very short of breath. He has a pulse ox at home and states that his oxygen was dropping to 89% today. He is currently on azithromycin, his last dose is tomorrow. Denies chest pain or fevers. No abdominal pain, nausea vomiting, diarrhea, leg swelling. No further complaints. Related Data Home Medications Medication Instructions Recorded Confirmed fluticasone propionate 50 1 spray intranasal BID 04/15/24 05/26/24 mcg/actuation nasal spray,suspension (Flonase Allergy Relief) Allergies Allergy/AdvReac Type Severity Reaction Status Date / Time No Known Allergies Allergy Verified 08/21/24 12:55 Review of Systems Review of Systems: All systems reviewed & are unremarkable except as noted in HPI and below PMFSH Past Medical History Medical History Abnormal fasting glucose Glucose 101 with hemoglobin A1c 5.6 on 08/23/2021. Glucose 114 with hemoglobin A1c 5.3 on 04/12/2024. Acute bronchitis At low risk for fall BMI 32.0-32.9,adult BMI 33.0-33.9,adult BMI 34.0-34.9,adult Chronic anxiety COVID-19 (10/30/21) complicated by syncope and hospitalization COVID-19 (08/21/23) 2nd episode tested positive 08/22/2023. Encounter for prostate cancer screening PSA 0.4 on 02/18/2021. PSA 0.51 on 02/21/2022. PSA is normal at 0.5 on 05/26/2024. Essential (primary) hypertension Exposure to COVID-19 virus Mixed hyperlipidemia Total cholesterol 186, HDL 55, triglycerides 110 and LDL 109 on 08/23/2021. Cholesterol 188, triglycerides 78, HDL 56, LDL 111 on 04/12/2024. Nail fungus multiple toenails Obesity (BMI 30.0-34.9) Polyp of colon colonoscopy on 07/22/2014 with 2 polyps with recheck in 5 years, Dr. Garcia. normal colonoscopy 06/20/2022. Porphyria goal of ferritin less than 50 with phlebotomy by oncologist Restless legs syndrome Seasonal allergic rhinitis Syncope Syncope Surgical History Surgical History History of colonoscopy with polypectomy (09/2011) Tubular adenoma and hyperplastic polyp. History of vocal cord polypectomy (10/2011) Benign laryngeal nodule. Family History Family History Father Heart disease Mother Hypertension Social History Social History Social History: Surrogate decision maker: Azra Anayaray, spouse. Code status: Full code. Smoking status: Never smoker Alcohol intake: current Drinks per week: 6 Alcohol use details: Beer. Substance use: never Substance use type: does not use Living arrangements: with family Additional living arrangements comments: The patient lives with his in [place]. 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 Spiritual care concerns: No Exam Narrative: GENERAL: Well-appearing, well-nourished, and in no acute distress. HEAD: Normocephalic, atraumatic. EYES: PERRLA and EOMI. ENT: Mucous membranes moist. NECK: Supple. CHEST: No respiratory distress. Coarse breath sounds in bilateral bases HEART: Regular rate and rhythm ABDOMEN: Soft, nontender, nondistended EXTREMITIES: Normal range of motion. No edema. SKIN: Warm, dry, no rash. NEURO: No focal deficits. Alert and oriented x3. PSYCH: Normal mood and affect. Course Vital Signs Vital signs: Vital Signs Temperature 97.5
[2024-08-21] MEDS: SODIUM CHLORIDE 0.9% IV 1,000 ML 999 ML IV CONT (12:52)
[2024-08-21] MEDS: KETOROLAC 15 MG/ML VIAL (*BKC) IV PUSH (12:53)
[2024-08-21 12:54] VITALS: BP 128/82; PULSE 80; RESP 20; O2SAT 95
[2024-08-21] MEDS: ALBUTEROL SULFATE NEB 2.5 MG/3 ML INH 5 MG INHALATION (13:01)
[2024-08-21] MEDS: IPRATROPIUM BR 0.02% INH SOLN 0.5 MG/2.5 ML VIAL INHALATION (13:01)
[2024-08-21 13:02] VITALS: PULSE 74; RESP 15
[2024-08-21 13:05] LABS: Basophils Absolute Auto 0.1 K/mm3 (0.0-0.1); Basophils Percent Auto 0.4 % (0.2-1.2); Eosinophils Absolute Auto 0.1 K/mm3 (0-0.3); Eosinophils Percent Auto 0.6 % (0-4.4); Hematocrit 40.4 % (42.0-52.0); Hemoglobin 13.5 g/dL (14.0-18.0); Immature Granulocyte Absolute 0.14 K/mm3 (0.00-0.031); Immature Granulocyte Percent A 0.6 % (0-0.5); Lymphocytes Percent Auto 9.2 % (18.3-44.2); Mean Corpuscular HGB Conc 33.4 g/dl (32-36); Mean Corpuscular Hemoglobin 30.5 pg (26-34); Mean Corpuscular Volume 91.4 fl (80-100); Mean Platelet Volume 9.9 fl (7.4-10.4); Monocytes Absolute Auto 1.4 K/mm3 (0.1-0.6); Monocytes Percent Auto 6.2 % (2.6-8.5); Neutrophils Absolute Auto 18.1 K/mm3 (1.3-6.7); Platelet Count Result 257 k/mm3 (150-375); Red Blood Count 4.42 M/mm3 (4.6-6.20); Red Cell Distribution Width 12.3 % (11.5-14.5); White Blood Count 21.8 K/mm3 (4.5-10.0)
[2024-08-21 13:12] VITALS: PULSE 83; RESP 16
[2024-08-21 13:27] LABS: Influenza A QL RT-PCR Negative (Negative); Influenza B QL RT-PCR Negative (Negative); RSV RNA, RT-PCR Negative (Negative); SARS-CoV-2 RNA PCR Negative (Negative)
[2024-08-21 14:54] LABS: Alanine Aminotransferase 18 U/L (6-50); Albumin Level 4.2 g/dL (3.5-5.1); Alkaline Phosphatase 85 U/L (38-126); Anion Gap 8 mmol/L (4-12); Aspartate Amino Transferase 28 U/L (17-59); Bilirubin,Total 0.8 mg/dL (0.2-1.3); Blood Urea Nitrogen 13 mg/dL (9-20); Calcium 8.9 mg/dL (8.4-10.2); Carbon Dioxide 28 mmol/L (22-30); Chloride 101 mmol/L (98-107); Estimated CRCL calculation 108 ml/min; Estimated Glomerular Filt Rate > 60; Glucose 92 mg/dL (65-110); Potassium 4.2 mmol/L (3.4-5.0); Sodium 137 mmol/L (137-145)
[2024-08-21 16:09] VITALS: BP 135/77; PULSE 77; RESP 27; O2SAT 95
== END 2024-08-21 16:20 | disposition home or self-care (01) ==
PROVIDERS: Emergency Provider Emergency Medicine; PCP Family Medicine
DX: J40 Bronchitis, not specified as acute or chronic (principal); J06.9 Acute upper respiratory infection, unspecified; Z20.822 Contact with and (suspected) exposure to COVID-19; I10 Essential (primary) hypertension; E78.2 Mixed hyperlipidemia; G25.81 Restless legs syndrome; E66.9 Obesity, unspecified; Z68.34 Body mass index [BMI] 34.0-34.9, adult; Z86.16 Personal history of COVID-19; Z86.0102 Personal history of hyperplastic colon polyps; Z86.0101 Personal history of adenomatous and serrated colon polyps; Z79.899 Other long term (current) drug therapy
CPT/HCPCS: 36415; 71250; 80053; 85025; 87637; 93005; 94640; 96361; 96374; 99284; J1885; J7030

== ENCOUNTER 2025-07-13 15:56 | Outpatient (CLI) | payer MEDICARE, SELFPAY ==
--- OUTSIDE RECORDS SUMMARY | 2025-07-13 16:00 | XMS_ITS | Clinical Summary ---
Author Organization [facility] Address [address] [place] [id number] Care Team Providers Care Land Title Examiner Name Role Phone Willie Zimmer MD Primary Care Provider [phone] Allergies No known active allergies Medications albuterol HFA (PROVENTIL HFA,VENTOLIN HFA,PROAIR HFA) 90 mcg/actuation inhaler 2 puffs as needed 08/21/2024 Active lisinopriL (PRINIVIL,ZESTRI L) 30 mg tablet Take 1 tablet (30 mg total) by mouth daily 07/09/2024 Active Active Problems Problem Noted Date Diagnosed Date Raised antibody titer 07/27/2014 Porphyria 07/27/2014 Immunizations Immunization Administration Dates Next Due Influenza, Quadrivalent, Gudelia l Culture-based MDCK, Preservative Free, Antibiotic Free, Intramuscular 09/04/2023,01/05/2020 Influenza, Quadrivalent, Spl it, Intramuscular 08/17/2016 Influenza, Quadrivalent, Spl it, Preservative Free, Intramuscular 09/19/2021,08/12/2020,08/23/2017 Influenza, Unspecified 09/05/2017 Surgical History Surgery Date Site/Laterality Comments COLONOSCOPY Medical History Medical History Date Comments Porphyria (HCC) Family History Medical History Relation Name Comments Heart disease Father Family history of cardiac disorder - (Added by TW Conv) Relation Name Status Comments Father Social History Tobacco Use Types Packs/Day Years Used Date Smoking Tobacco: Never Passive Smoke Exposure: Never Smokeless Tobacco: Never Tobacco Cessation:Counseling Given: Not Answered Alcohol Use Standard Drinks/Week Comments Not Currently 0 (1 standard drink = 0.6 oz pur e alcohol) AUDIT-C Answer Date Recorded Frequency of Alcohol Consumption Never 02/03/2019 Average Number of Drinks Not on file 019 Frequency of Binge Drinking Not on file 01/17 Sex and Gender Information Value Date Recorded Sex Assigned at Not on file 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 Gender Identity Not on file Sexual Orientation Not on file Obstetrics History Last Filed Vital Signs Vital Sign Reading Time Taken Comments Blood Pressure 131/83 04/01/2025 10:23 AM CDT Pulse 69 04/01/2025 10:23 AM CDT Temperature 36.1 C (96.9 F) 04/01/2025 10:23 AM CDT Respiratory Rate 16 04/01/2025 10:23 AM CDT Oxygen Saturation 98% 04/01/2025 10:23 AM CDT Inhaled Oxygen Concentration - - Weight 108.9 kg (240 lb) 04/01/2025 10:23 AM CDT Height 171.5 cm (5' 7.52) 09/02/2024 11:28 AM C DT Body Mass Index 37.01 09/02/2024 11:28 AM CDT Plan of Treatment Health Maintenance Due Date Last Done Comments Colon Cancer Screening-Colonoscopy 1957 Depression Screening 1957 Fall Risk Assessment 1957 Hepatitis C Screening 1957 Prostate Cancer Screening-PSA 1957 DTaP/Tdap/Td Vaccine (1 - Tdap) 1968 Hepatitis B Screening 1975 Pneumococcal vaccine 65+ (1 of 1 - PCV) 2007 Zoster Vaccine (1 of 2) 2007 Well Visit 65+ 2022 Covid-19 Vaccine (3 - 2023-2 5 season) 2024 02/08/2021, 01/06/2021 Influenza Vaccine (#1) 2025 , 09/19/2021, 08/12/2020, Additional history exists Insurance MEDICARE MEDICARE Care Teams Land Title Examiner Relationship Specialty Start Date End Date Willie Zimmer MD [address] [id number] PCP - General 01/02/18
--- OUTSIDE RECORDS SUMMARY | 2025-07-13 16:00 | XMS_ITS | Clinical Summary ---
Author Organization [facility] Address [address] [place] [address] Care Team Providers Care Launch Commander [employer] Name Role Phone Willie Zimmer MD Primary Care Provider [phone] Source Comments [facility],non-[facility]iliates and Associated Physician Practices is amultiple site organization consisting of ambulatory clinics and [place]in [place] and [place]. This disclosure is being madepursuant to the Care Everywhere program and may not contain all information available regarding this patient. Last updated [facility] Allergies No known active allergies Medications * Be aware that medications may not be up to date on this document. Alwaysverify current medications with the patient. No known medications Family History Relation Name Status Comments Father Mother Alive Social History Tobacco Use Types Packs/Day Years Used Date Smoking Tobacco: Never Smokeless Tobacco: Never Sex and Gender Information Value Date Recorded Sex Assigned at Not on file Legal Sex Male 3:25 PM CDT Gender Identity Not on file Sexual Orientation Not on file Last Filed Vital Signs Vital Sign Reading Time Taken Comments Blood Pressure 126/82 04/16/2018 5:02 PM CDT Pulse 60 04/16/2018 5:02 PM CDT Temperature 36.8 C (98.3 F) 04/16/2018 5:02 PM CDT Respiratory Rate 16 04/16/2018 5:02 PM CDT Oxygen Saturation 98% 04/16/2018 5:02 PM CDT Inhaled Oxygen Concentration - - Weight 103.4 kg (228 lb) 04/16/2018 5:02 PM CDT Height 177.8 cm (5' 10) 04/16/2018 5:02 PM CDT Body Mass Index 32.71 04/16/2018 5:02 PM CDT Plan of Treatment Health Maintenance Due Date Last Done Comments COLOGUARD (AGES 45-75) - COL ON CA SCREENING 1957 COLON MONITORING 1957 COLONOSCOPY - COLON CA SCREENING 1957 CT COLONOGRAPHY - COLON CA SCREENING 1957 Colorectal Cancer Screening 1957 FIT - COLON CA SCREENING 1957 FLEX SIG - COLON CA SCREENING 1957 LIPID TESTING 1957 HEPATITIS C SCREENING 10/06/1975 DTAP/TDAP/TD VACCINES (1 - Tdap) 1976 PNEUMOCOCCAL VACCINE 50+ (1 of 1 - PCV) 2007 ZOSTER VACCINE (1 of 2) 2007 SCREENING FOR DIABETES 04/16/2018 COVID-19 VACCINE (1 - 2023-2 5 season) 2024 DEPRESSION SCREENING 11/19/2024 INFLUENZA VACCINE (#1) 2025 Respiratory Syncytial Virus (RSV) Vaccine Pt: or over 60 yrs (1 - 1-dose 75+ series) 2032 HEPATITIS B VACCINE Aged Out No longe r eligible based on patient's age to complete this topic HIB VACCINE Aged Out No longer eligi ble based on patient's age to complete this topic HPV VACCINE Aged Out No longer eligi ble based on patient's age to complete this topic MENINGOCOCCAL (Group B) VACC INE SHARED DECISION-MAKING Aged Out No longer eligibl e based on patient's age to complete this topic MENINGOCOCCAL GROUPS A/C/Y/W VACCINE Aged Out No longer eligible b ased on patient's age to complete this topic Insurance Care Teams [employer] Relationship Specialty Start Date End Date Willie Zimmer MD PCP - General Family Medicine 04/16/18
[2025-07-13 17:02] LABS: Add Urine Microscopic? YES; Appearance Urine Clear (Clear); Glucose Urine UA Negative (Negative); Leukocyte Esterase Ur 2+ LEU/UL (Negative); Nitrate Urine Negative (Negative); Non Pathogenic Casts 0-2; Specific Grav Ur 1.021 (1.001-1.035)
[2025-07-13 17:13] LABS: Hemoglobin A1C 5.5 % (<5.7)
[2025-07-13 17:15] LABS: Alanine Aminotransferase 26 U/L (6-50); Albumin Level 4.4 g/dL (3.5-5.1); Alkaline Phosphatase 66 U/L (38-126); Anion Gap 7 mmol/L (4-12); Aspartate Amino Transferase 33 U/L (17-59); Bilirubin,Total 0.5 mg/dL (0.2-1.3); Blood Urea Nitrogen 21 mg/dL (9-20); Calcium 9.2 mg/dL (8.4-10.2); Carbon Dioxide 26 mmol/L (22-30); Chloride 104 mmol/L (98-107); Cholesterol 195 mg/dL (0-200); Estimated Glomerular Filt Rate > 60; Glucose 109 mg/dL (65-110); HDL Direct 56 mg/dL; Potassium 4.2 mmol/L (3.4-5.0); Sodium 137 mmol/L (137-145); Total Protein 7.5 g/dL (6.3-8.2); Triglycerides 104 mg/dL (<150)
[2025-07-13 17:50] LABS: Prostate Specific Antigen 0.6 ng/mL (< OR = 4.0); Thyroid Stimulating Hormone 3.070 uIU/mL (0.465-4.680)
== END 2025-07-13 15:57 | disposition home or self-care (01) ==
LOC: ANHLAB 15:58
PROVIDERS: PCP Family Medicine; Visit Provider Family Medicine
DX: R73.01 Impaired fasting glucose (principal); Z12.5 Encounter for screening for malignant neoplasm of prostate; E78.2 Mixed hyperlipidemia; I10 Essential (primary) hypertension
CPT/HCPCS: 36415; 80048; 80061; 80076; 81001; 83036; 84153; 84443; G0103